=== PATIENT | male | born 1955 | race African-American/Black ===

== ENCOUNTER 2024-07-07 18:50 | Emergency (ER) | payer MEDICARE, MEDICAID ==
[~2024-07-07] VITALS: Ht 170.2 cm; Wt 58.0 kg
[2024-07-07 18:53] VITALS: O2SAT 100
[2024-07-07] MEDS: KETOROLAC 15MG/ML VIAL IM ONE (20:32)
[2024-07-07] MEDS: TETANUS, DIPHTHERIA, PERTUSSIS VAC/PF 0.5ML (>10YR OLD) IM ONE (20:32)
[2024-07-07] MEDS ORDERED: NAPR500T7 MT (21:31)
[2024-07-07 21:42] VITALS: BP 145/82; PULSE 76; RESP 18; TEMP 36.83628; O2SAT 99
== END 2024-07-07 21:40 | disposition home or self-care (01) ==
LOC: ER 18:50
DX: S00.01XA Abrasion of scalp, initial encounter (principal); R51.9 Headache, unspecified; E11.9 Type 2 diabetes mellitus without complications; F20.9 Schizophrenia, unspecified; I10 Essential (primary) hypertension; Z79.1 Long term (current) use of non-steroidal anti-inflammatories (NSAID); Y08.89XA Assault by other specified means, initial encounter; Y93.89 Activity, other specified; Y92.89 Other specified places as the place of occurrence of the external cause; Y99.8 Other external cause status
CPT/HCPCS: 99285; 70450; 71045; 72125; 90715; 90471; 96372; J1885